=== PATIENT | female | born 1975 | race Caucasian/White ===

== ENCOUNTER 2018-01-21 14:01 | Emergency (ER) | payer BC ==
[2018-01-21 14:13] VITALS: BP 145/96
--- NOTE | 2018-01-21 15:39 | UC ---
Son Green Nikita, scribed for Stephen Solorzano MD on 01/21/18 at 1416 . General HPI - HPI Summary HPI Summary: This patient is a 42 year old F presenting to [facility] with a chief complaint of L facial droop since yesterday. She experienced numbness on the L side of the face , and then had drooping of the face and mouth last night. She was also unable to close her L eye. The patient rates the pain 0/10 in severity. Symptoms aggravated by nothing. Symptoms alleviated by nothing. Patient denies any upper and lower extremity weakness or numbness and has no other deficits. - History of Current Complaint Chief Complaint: UCGeneralIllness Stated Complaint: FACIAL NUMBNESS Time Seen by Provider: 01/21/18 14:05 Hx Obtained From: Patient Hx Last Menstrual Period: 04/30/15 Onset/Duration: Sudden Onset, Lasting Days, Still Present Current Severity: None Pain Intensity: 0 Aggravating: nothing Alleviating: nothing Associated Signs & Symptoms: Positive: Other - L facial and mouth drooping, unable to close her L eye. Patient denies any upper and lower extremity weakness or numbness and has no other deficits. - Allergy/Home Medications Allergies/Adverse Reactions: Allergies Allergy/AdvReac Type Severity Reaction Status Date / Time No Known Allergies Allergy Verified 01/21/18 14:06 Home Medications: Home Medications Buprenorphine HCl/Naloxone HCl [Suboxone 8 mg-2 mg Sl Film] 2 each SL 01/21/18 [ History] DULoxetine DR CAP* [Cymbalta CAP*] 30 mg PO DAILY 01/21/18 [History Confirmed ] Lisdexamfetamine (NF) [Vyvanse (NF)] 60 mg PO 01/21/18 [History] PMH/Surg Hx/FS Hx/Imm Hx Endocrine History: Hypothyroidism, Other Other Endocrine History: No DM Cardiovascular History: Other Other Cardiovascular History: No CAD, HTN - Surgical History Surgical History: Yes Surgery Procedure, Year, and Place: . T&A. breast augmentation. hysterectomy - Family History Known Family History: Positive: Hypertension - Social History Alcohol Use: Rare Substance Use Type: None Smoking Status (MU): Former Smoker Amount Used/How Often: none to 5 cigs per day Length of Time of Smoking/Using Tobacco: on and off for 22 years Have You Smoked in the Last Year: Yes When Did the Patient Quit Smoking/Using Tobacco: 4 MOS Review of Systems Constitutional: Other - denies fever Neurological: Other - numbness on the L side of the face, and then had drooping of the face and mouth last night, unable to close her L eye; Patient denies any upper and lower extremity weakness or numbness and has no other deficits. All Other Systems Reviewed And Are Negative: Yes Physical Exam - Summary Physical Exam Summary: VITAL SIGNS: Reviewed. GENERAL: ~Patient is a well-developed and nourished FEMALE who is lying comfortable in the stretcher. ~Patient is not in any acute respiratory distress. HEAD AND FACE: Normocephalic EYES: PERRLA, EOMI x 2. EARS: Hearing grossly intact. MOUTH: Oropharynx within normal limits. NECK: Supple, trachea is midline, no adenopathy, no JVD, no carotid bruit. CHEST: Symmetric, no tenderness at palpation LUNGS: Clear to auscultation bilaterally. No wheezing or crackles. CVS: Regular rate and rhythm, S1 and S2 present, no murmurs or gallops appreciated. ABDOMEN: Soft, non-tender. Bowel sounds are normal. No abdominal abnormal pulsations. EXTREMITIES: Full ROM in all major joints, no edema, no cyanosis or clubbing. NEURO: Alert and oriented x 3.Speech is normal and follows commands. Numbness on L side and dropping on L side of face. Difficulty closing the L eye. SKIN: Dry and warm Triage Information Reviewed: Yes Vital Signs: Initial Vital Signs Temp 98.2 F 01/21/18 14:10 Pulse 105 01/21/18 14:10 Resp 16 01/21/18 14:10 BP 145/96 01/21/18 14:10 Pulse Ox 100 01/21/18 14:10 Vital Signs Reviewed: Yes Course/Dx - Course Course Of Treatment: I offered for the patient to go to the ER and the patient declined. I offered the patient to get a CT of the head in the Urgent Care, but because of insurance, the patient declined, she declined bloodwork, but accepts a Lyme titer. 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 The patient understands the risks and benefits of a full workup but the patient still declined. Therefore, I will give the patient Valtrex and prednisone and f/u with PCP. She will use an eye patch and eye drops. If the sx worsens neuro focal deficits, she will go to ED. The patient is leaving AMA. - Differential Dx - Multi-Symptom Differential Diagnoses: Other - CVA, TIA Provider Diagnoses: Harp's Palsy Discharge - Sign-Out/Discharge Documenting (check all that apply): Discharge/Admit/Transfer - Discharge Plan Condition: Stable Disposition: HOME Prescriptions: predniSONE TAB* [Deltasone TAB*] 60 mg PO DAILY #15 tab ValACYclovir (*) [Valtrex 1 GM(*)] 1 gm PO BID #10 tab Patient Education Materials: Harp Palsy (ED) Referrals: Jenniffer Douglas [Primary Care Provider] - Additional Instructions: Take medications as instructed Increase your fluid intake Return to the UC if symptoms worsen The documentation as recorded by the Son zamudio Nikita accurately reflects the service I personally performed and the decisions made by me, Stephen Solorzano MD.
== END 2018-01-21 14:33 | disposition home or self-care (01) ==
LOC: UCEAST 14:01
DX: G51.0 Bell's palsy (principal); E03.9 Hypothyroidism, unspecified; Z87.891 Personal history of nicotine dependence
CPT/HCPCS: 99212; G0463